=== PATIENT | male | born 1965 | race Two or more races ===

== ENCOUNTER 2019-12-03 12:00 | Emergency (ER) | payer OTHER ==
[~2019-12-03] VITALS: Ht 177.8 cm; Wt 83.9 kg
[~2019-12-03 12:00] MED LIST: PROTONIX40 MG PO
[2019-12-03] MEDS ORDERED: PEPCID AC20 MG PO (14:35)
[2019-12-03] MEDS ORDERED: CARAFATE1 GM PO (14:35)
== END 2019-12-03 14:40 | disposition home or self-care (01) ==
LOC: ER 12:00
DX: K29.60 Other gastritis without bleeding (principal)

== ENCOUNTER 2019-12-05 05:43 | Emergency (ER) | payer OTHER ==
[~2019-12-05] VITALS: Ht 177.8 cm; Wt 81.6 kg
[~2019-12-05 05:43] MED LIST changes: +CARAFATE1 GM PO; +PEPCID AC20 MG PO
[2019-12-05] MEDS ORDERED: PROTONIX40 M1 (06:00)
[2019-12-05] MEDS ORDERED: NORVASC2.5 M1 (06:01)
== END 2019-12-05 13:01 | disposition home or self-care (01) ==
LOC: ER 05:43
DX: R42 Dizziness and giddiness (principal); K21.9 Gastro-esophageal reflux disease without esophagitis; Z03.818 Encounter for observation for suspected exposure to other biological agents ruled out